=== PATIENT | female | born 1990 ===

== ENCOUNTER → 2023-03-06 14:12 | Outpatient (CLI) | payer SELFPAY | PROVIDERS: Referring Provider Family Medicine; Visit Provider Family Medicine | DX: Z23 Encounter for immunization (principal) | CPT/HCPCS: 90471; 90686 ==

== ENCOUNTER → 2024-04-07 10:01 | Outpatient (CLI) | payer BC, SELFPAY | PROVIDERS: Referring Provider Internal Medicine; Visit Provider Internal Medicine | DX: Z23 Encounter for immunization (principal) | CPT/HCPCS: 90471; 90656 ==